=== PATIENT | female | born 1975 | race Caucasian/White ===

== ENCOUNTER 2016-09-25 00:10 | Emergency (ER) | payer OTHER, SELFPAY ==
[~2016-09-25] VITALS: Ht 175.3 cm; Wt 108.0 kg
[2016-09-25] MEDS ORDERED: KETOROLAC 30 MG/ML VIAL (J1885) IV ONE (00:45)
[2016-09-25 01:02] LABS: BASO % 0.5 % (0.0-1.0); EOS # 0.2 K/mm3 (0.0-0.50); EOS % 1.8 % (0.0-3.0); LARGE UNSTAINED CELL # 0.2 K/mm3 (0.0-0.4); LARGE UNSTAINED CELL % 1.7 % (0.0-4.0); LYMPH % 17.8 % (24.0-44.0); MEAN CORPUSCULAR HEMOGLOBIN 33.4 pg (27.0-33.0); MEAN CORPUSCULAR HGB CONC 33.3 g/dl (32.0-36.5); MEAN CORPUSCULAR VOLUME 100.3 fl (80.0-96.0); MONO # 0.5 K/mm3 (0.0-0.8); MONO % 4.2 % (0.0-5.0); NEUTROPHILS # 8.2 K/mm3 (1.8-7.7); PLATELET COUNT, AUTOMATED 264 k/mm3 (150-450); RED CELL DISTRIBUTION WIDTH 13.1 % (11.5-14.5)
[2016-09-25 01:08] LABS: INR 0.99
[2016-09-25 01:15] LABS: ANION GAP 8 MEQ/L (8-16); BLOOD UREA NITROGEN 7 MG/DL (7-18); CALCIUM LEVEL 9.2 MG/DL (8.5-10.1); CARBON DIOXIDE LEVEL 28 MEQ/L (21-32); CHLORIDE LEVEL 105 MEQ/L (98-107); CREATININE FOR GFR 0.68 MG/DL (0.55-1.02); GLOMERULAR FILTRATION RATE > 60.0 (>60); GLUCOSE, FASTING 94 MG/DL (70-105); POTASSIUM SERUM 3.1 MEQ/L (3.5-5.1); SODIUM LEVEL 141 MEQ/L (136-145)
[2016-09-25] MEDS ORDERED: ISOVUE-370 76% 100ML VIAL (Q9967) As Ordered ONE (02:40)
--- NOTE | 2016-09-25 03:20 | REPUSA ---
CLINICAL HISTORY: Dyspnea, exclude PE. TECHNIQUE: Multiple incremental axial, coronal and oblique images are obtained from the thoracic inle t to the upper abdomen. Intravenous contrast material was administered as per pulmonary embolism prot ocol. COMMENTS: Bilateral basilar atelectatic pulmonary changes on the left side. Multifocal air trapping in the lungs. There is excellent opacification of pulmonary arterial system without evidence for pulmonary embolism . Aorta is of normal caliber without evidence for dissection or aneurysm. There is no evidence of pleural or parenchymal mass. There are no pleural effusions. There is no evid ence of hilar or mediastinal lymphadenopathy. The heart and great vessels are within normal limits. Images of the upper abdomen demonstrate no evidence of adrenal mass. The bony structures are free of lytic or blastic lesions. Mild splenomegaly. IMPRESSION: No evidence for pulmonary embolism. Bilateral basilar atelectatic pulmonary changes more on the left side. Mild splenomegaly. Thank you for your kind referral of this patient.
[2016-09-25] MEDS ORDERED: dexameTHASONE 20 MG/5 ML VIAL (J1100) IV ONE (03:30)
[2016-09-25] MEDS ORDERED: PRED20TA PO (03:47)
[2016-09-25] MEDS ORDERED: KETO10TAB PO (03:48)
[2016-09-25 04:03] VITALS: BP 124/69
--- NOTE | 2016-09-25 10:09 | ECGEPIP ---
Stationary ECG Study [facility] - ED Test Date: 2016-09-25 Pat Name: MARJ COLON Department: Room: - Gender: F [employer]acking Unit Operator: alfie : 1975 Requested By: MORALES LAMAS Order Number: [id number] Reading MD: Karla Martinez Measurements Intervals [place] Rate: 99 P: 52 HI: 138 QRS: 3 QRSD: 97 T: 18 QT: 375 QTc: 482 Interpretive Statements SINUS RHYTHM SIMILAR 08/27/15 Electronically Signed On 09-25-2016 10:09:44 EDT by Karla Martinez
== END 2016-09-25 04:05 | disposition home or self-care (01) ==
LOC: EDBD 00:10 → M ED 01:05
DX: R07.81 Pleurodynia (principal); Z79.899 Other long term (current) drug therapy; Z97.5 Presence of (intrauterine) contraceptive device; Z88.5 Allergy status to narcotic agent; F17.210 Nicotine dependence, cigarettes, uncomplicated
CPT/HCPCS: 71275; 80048; 82550; 82553; 85025; 85610; 85730; 93005; 96374; 96375; 99283; J1100; J1885; Q9967

== ENCOUNTER 2019-05-23 14:07 | Emergency (ER) | payer BC, MEDICAID ==
[~2019-05-23] VITALS: Ht 175.3 cm; Wt 84.0 kg
[~2019-05-23 14:07] MED LIST: KETO10TAB PO; PRED20TA PO; ZANTREX; [UNRECOGNIZED DRUG - OTHER]
[2019-05-23] MEDS ORDERED: ASPI-1 PO (14:16)
[2019-05-23] MEDS ORDERED: MIRE1IUD IU (14:17)
[2019-05-23 15:48] LABS: BASO # 0.1 10^3/uL (0.0-0.2); BASO % 0.9 % (0.0-1.0); EOS # 0.3 10^3/uL (0.0-0.5); EOS % 3.6 % (0.0-3.0); HEMOGLOBIN 14.6 g/dl (12.0-15.5); LYMPH # 1.7 10^3/uL (1.5-5.0); LYMPH % 20.2 % (24.0-44.0); MEAN CORPUSCULAR HEMOGLOBIN 33.3 pg (27.0-33.0); MEAN CORPUSCULAR HGB CONC 33.2 g/dl (32.0-36.5); MEAN CORPUSCULAR VOLUME 100.2 fl (80.0-96.0); MONO # 0.8 10^3/uL (0.0-0.8); MONO % 9.2 % (0.0-5.0); NEUTROPHILS # 5.6 10^3/uL (1.5-8.5); NEUTROPHILS % 65.7 % (36.0-66.0); PLATELET COUNT, AUTOMATED 276 10^3/uL (150-450); RED BLOOD COUNT 4.39 10^6/uL (4.00-5.40); WHITE BLOOD COUNT 8.5 10^3/uL (4.0-10.0)
[2019-05-23 16:12] LABS: BLOOD UREA NITROGEN 12 MG/DL (7-18); CALCIUM LEVEL 8.6 MG/DL (8.5-10.1); CARBON DIOXIDE LEVEL 27 MEQ/L (21-32); CHLORIDE LEVEL 110 MEQ/L (98-107); CREATININE FOR GFR 0.83 MG/DL (0.55-1.30); GLOMERULAR FILTRATION RATE > 60.0 (>58); GLUCOSE, FASTING 109 MG/DL (70-100); POTASSIUM SERUM 4.7 MEQ/L (3.5-5.1); SODIUM LEVEL 144 MEQ/L (136-145)
--- NOTE | 2019-05-23 17:34 | REPVR ---
PROCEDURE INFORMATION: Exam: US Duplex Artery or Vein of the Abdominal and/or Reproductive Organs, Limited Exam date and time: 05/23/2019 4:50 PM Age: 44 years old Clinical indication: Pelvic pain; Additional info: Left lower pelvic pain TECHNIQUE: Imaging protocol: Real-time duplex ultrasound scan of the arterial or venous flow of the abdomen and/or reproductive organs, with color Doppler flow and spectral waveform analysis with image documentation. Exam focused on the region of clinical interest. Duplex images were received to evaluate vascular conditions. COMPARISON: US PELVIC NON-OB COMPLETE 02/25/2016 11:30 AM FINDINGS: Ovaries: The right ovary measures 3.3 x 1.8 x 1.6 cm. Normal color arterial and venous blood flow. Normal arterial spectral blood flow. The left ovary measures 3.2 x 1.7 x 2.0 cm. Normal color arterial and venous blood flow. Normal spectral arterial blood flow. There is a mildly complex cyst measuring 1.7 x 1.3 x 1.1 cm. IMPRESSION: No evidence of ovarian torsion. PROCEDURE INFORMATION: Exam: US Pelvis Complete, Transabdominal and US Pelvis, Transvaginal Exam date and time: 05/23/2019 4:50 PM Age: 44 years old Clinical indication: Pelvic pain; Additional info: Left lower pelvic pain TECHNIQUE: Imaging protocol: Real-time transabdominal and transvaginal pelvic ultrasound (complete) with image documentation. Transvaginal imaging was used for better evaluation of the endometrium and adnexa. COMPARISON: US PELVIC NON-OB COMPLETE 02/25/2016 11:30 AM FINDINGS: Uterus/cervix: The uterus measures 7.6 x 4.2 x 6.4 cm. The endometrium measures 0.7 cm. There are endometrial calcifications. Right adnexa: The right ovary measures 3.3 x 1.8 x 1.6 cm. Normal color arterial and venous blood flow. Normal arterial spectral blood flow. Left adnexa: The left ovary measures 3.2 x 1.7 x 2.0 cm. Normal color arterial and venous blood flow. Normal spectral arterial blood flow. There is a mildly complex cyst measuring 1.7 x 1.3 x 1.1 cm. Free fluid: None. Bladder: Normal. IMPRESSION: 1. 1.7 cm left ovarian complex cyst. 2. No evidence of ovarian torsion. Electronically signed by: Kendal Oconnor On 05/23/2019 17:33:46 PM
--- NOTE | 2019-05-23 17:39 | REPVR ---
PROCEDURE INFORMATION: Exam: CT Cervical Spine Without Contrast Exam date and time: 05/23/2019 4:29 PM Age: 44 years old Clinical indication: Neck pain; Additional info: Neck pain, numbness TECHNIQUE: Imaging protocol: Computed tomography images of the cervical spine without contrast. Radiation optimization: All CT scans at this facility use at least one of these dose optimization techniques: automated exposure control; mA and/or kV adjustment per patient size (includes targeted exams where dose is matched to clinical indication); or iterative reconstruction. COMPARISON: Thyroid, ST head+neck US 08/27/2015 11:17 AM FINDINGS: Vertebrae: Mild lower cervical levoconvex scoliosis. No acute fracture seen. Diffuse osseous demineralization. Mild posterior disc height loss with slight endplate osteophytic ridging at C3-C4. Elsewhere, minimal cervical prevertebral spondylosis. Facet arthropathy is severe on the left at C3-C4. C2-C3: No disc herniation. No spinal stenosis. No neural foraminal narrowing. C3-C4: Uncovertebral and in particular severe left facet arthropathy causing moderate left and mild right neural foraminal stenoses. C4-C5: Mild uncovertebral and facet arthropathy causing mild left neural foraminal stenosis. C5-C6: No disc herniation. No spinal stenosis. No neural foraminal narrowing. C6-C7: No disc herniation. No spinal stenosis. No neural foraminal narrowing. C7-T1: No disc herniation. No spinal stenosis. No neural foraminal narrowing. Soft tissues: Unremarkable. Lungs: Lung apices are normal. IMPRESSION: Moderate left neural foraminal stenosis at C3-C4. Electronically signed by: Kendal Oconnor On 05/23/2019 17:39:32 PM
[2019-05-23 17:59] LABS: CHLAMYDIA DNA AMPLIFICATION NEGATIVE (NEGATIVE); GC DNA AMPLIFICATION NEGATIVE (NEGATIVE)
[2019-05-23 18:17] VITALS: BP 118/68
[2019-05-23] MEDS ORDERED: FLAG500T PO (18:39)
[2019-05-23] MEDS ORDERED: metroNIDAZOLE (FLAGYL) 500 MG TAB PO ONE (18:45)
== END 2019-05-23 18:50 | disposition home or self-care (01) ==
LOC: M ED 14:07
DX: N83.292 Other ovarian cyst, left side (principal); N76.0 Acute vaginitis; M48.02 Spinal stenosis, cervical region; Z87.59 Personal history of other complications of pregnancy, childbirth and the puerperium; N80.9 Endometriosis, unspecified; D25.9 Leiomyoma of uterus, unspecified; Z87.42 Personal history of other diseases of the female genital tract; Z87.448 Personal history of other diseases of urinary system; F17.200 Nicotine dependence, unspecified, uncomplicated; Z79.82 Long term (current) use of aspirin; Z79.3 Long term (current) use of hormonal contraceptives; Z88.8 Allergy status to other drugs, medicaments and biological substances

== ENCOUNTER 2021-09-22 07:04 | Inpatient (IN) | payer OTHER, MEDICAID ==
[~2021-09-22] VITALS: Ht 175.3 cm; Wt 106.1 kg
[~2021-09-22 07:04] MED LIST changes: +ASPI-1 PO; +FLAG500T PO; +MIRE1IUD IU
[2021-09-22] MEDS ORDERED: MUPI2OI TOP (07:14)
[2021-09-22] MEDS ORDERED: AK-T0.3S (07:14)
[2021-09-22] MEDS ORDERED: PRED20TA PO (07:14)
[2021-09-22] MEDS ORDERED: DOXY-443 PO (07:14)
[2021-09-22] MEDS ORDERED: ACETAMINOPHEN 500 MG TAB PO ONE (07:20)
[2021-09-22] MEDS ORDERED: VANCOMYCIN HCL 2,000 MG in D5W 500 ML IV ONE (08:50)
[2021-09-22] MEDS ORDERED: ONDANSETRON 4MG/2ML VIAL IV ONE (08:50)
[2021-09-22] MEDS ORDERED: FLUORESCEIN OPHTH 1 MG STRIP XX ONE (08:55)
[2021-09-22] MEDS ORDERED: VANCOMYCIN HCL 1,000 MG, VIAL MATE ADAPTER 1 EACH in NS 250 ML IV ONE ×2 (09:10→11:00)
[2021-09-22 09:28] LABS: HEMATOCRIT 39.2 % (36.0-47.0); HEMOGLOBIN 13.4 g/dl (12.0-15.5); MEAN CORPUSCULAR HEMOGLOBIN 32.6 pg (27.0-33.0); MEAN CORPUSCULAR HGB CONC 34.2 g/dl (32.0-36.5); MEAN CORPUSCULAR VOLUME 95.4 fl (80.0-96.0); PLATELET COUNT, AUTOMATED 235 10^3/uL (150-450); RED BLOOD COUNT 4.11 10^6/uL (4.00-5.40); WHITE BLOOD COUNT 7.9 10^3/uL (4.0-10.0)
[2021-09-22 09:56] LABS: BLOOD UREA NITROGEN 15 MG/DL (7-18); C REACTIVE PROTEIN QUANTITATIV 0.71 MG/DL (0.00-0.30); CALCIUM LEVEL 8.3 MG/DL (8.5-10.1); CARBON DIOXIDE LEVEL 20 MEQ/L (21-32); CHLORIDE LEVEL 111 MEQ/L (98-107); CREATININE FOR GFR 0.49 MG/DL (0.55-1.30); GLOMERULAR FILTRATION RATE > 60.0 (>58); GLUCOSE, FASTING 118 MG/DL (70-100); POTASSIUM SERUM 4.6 MEQ/L (3.5-5.1); SODIUM LEVEL 137 MEQ/L (136-145)
[2021-09-22] MEDS: MORPHINE 2 MG/ML 1ML VIAL IV PRN ×2 (10:05→11:32)
[2021-09-22 10:07] LABS: ATYPICAL LYMPH 5 % (0-5); BASOPHILS 1 % (0-1); EOSINOPHILS 1 % (0-3); LYMPHOCYTES 12 % (16-44); MONOCYTES 6 % (0-5); NEUTROPHILS 72 % (28-66); PLASMA CELL 1 % (0-0)
[2021-09-22 10:08] LABS: PLATELET ESTIMATE NORMAL (NORMAL)
[2021-09-22] MEDS ORDERED: ISOVUE-370 76% 100ML VIAL As Ordered ONE (10:19)
[2021-09-22 10:38] LABS: RSV AMPLIFICATION NEGATIVE (NEGATIVE)
[2021-09-22] MEDS ORDERED: ACETAMINOPHEN TAB 650MG DOSE (2X325MG) PO PRN (12:00)
[2021-09-22] MEDS ORDERED: HOME MED LIST COMPLETE! XX SCH (12:10)
[2021-09-22 12:22] LABS: INR 0.97; PARTIAL THROMBOPLASTIN TIME 26.3 SECONDS (25.9-37.0); PROTHROMBIN TIME 13.3 SECONDS (12.7-14.5)
[2021-09-22 15:25] VITALS: BP 100/65
[2021-09-22] MEDS: oxyCODONE 5MG TAB PO PRN ×2 (16:59→21:52)
[2021-09-22] MEDS: valACYclovir HCL 500 MG TAB PO SCH ×2 (17:00→21:50)
[2021-09-22] MEDS: CEPHALEXIN 250MG CAPSULE PO SCH (17:00)
[2021-09-22 17:52] VITALS: BP 99/66
[2021-09-22] MEDS ORDERED: ENOXAPARIN 40MG/0.4ML SYRINGE (J1650 PER 10MG) SC SCH (21:00)
[2021-09-23] MEDS: CEPHALEXIN 250MG CAPSULE PO SCH ×3 (00:09→11:23)
[2021-09-23] MEDS: oxyCODONE 5MG TAB PO PRN ×2 (05:30→09:41)
[2021-09-23 06:00] VITALS: BP 101/53
[2021-09-23] MEDS ORDERED: CEPH250T PO (07:58)
[2021-09-23] MEDS ORDERED: VALA500T5 PO (07:58)
[2021-09-23] MEDS ORDERED: OXYC1TAB23 PO (08:00)
[2021-09-23] MEDS: valACYclovir HCL 500 MG TAB PO SCH (08:34)
== END 2021-09-23 11:53 | disposition home or self-care (01) | DRG 383 ==
LOC: M ED 07:04 → M ED INP 11:58 → ENRESERV 14:20 → M MSPAV 15:05
PROVIDERS: ADMIT Internal Medicine; ATTEND Internal Medicine
DX: L03.213 Periorbital cellulitis (principal); B02.9 Zoster without complications; J45.909 Unspecified asthma, uncomplicated; Z79.2 Long term (current) use of antibiotics; Z79.52 Long term (current) use of systemic steroids; Z79.899 Other long term (current) drug therapy; Z88.5 Allergy status to narcotic agent; N80.9 Endometriosis, unspecified; Z97.5 Presence of (intrauterine) contraceptive device; Z90.49 Acquired absence of other specified parts of digestive tract

== ENCOUNTER → 2022-08-13 | Outpatient (REF) | payer OTHER, MEDICAID ==
[~2022-08-13] MED LIST changes: +AK-T0.3S; +CEPH250T PO; +DOXY-443 PO; +MUPI2OI TOP; +OXYC1TAB23 PO; +VALA500T5 PO
== END ==
LOC: M LAB REF 09:38
PROVIDERS: ATTEND Nurse Practitioner Family
DX: J06.9 Acute upper respiratory infection, unspecified (principal); Z20.828 Contact with and (suspected) exposure to other viral communicable diseases

== ENCOUNTER 2023-01-20 17:32 | Emergency (ER) | payer MEDICAID, OTHER ==
[~2023-01-20] VITALS: Ht 175.3 cm; Wt 113.6 kg
[~2023-01-20 17:32] MED LIST changes: -AK-T0.3S; +TOBR0.3S30
[2023-01-20 18:25] LABS: BASO % 0.3 % (0.0-1.0); EOS # 0.1 10^3/uL (0.0-0.5); EOS % 1.2 % (0.0-3.0); HEMATOCRIT 40.9 % (36.0-47.0); HEMOGLOBIN 13.8 g/dl (12.0-15.5); LYMPH % 16.8 % (24.0-44.0); MEAN CORPUSCULAR HEMOGLOBIN 31.9 pg (27.0-33.0); MEAN CORPUSCULAR HGB CONC 33.7 g/dl (32.0-36.5); MEAN CORPUSCULAR VOLUME 94.7 fl (80.0-96.0); MONO # 0.7 10^3/uL (0.0-0.8); MONO % 5.9 % (2.0-8.0); NEUTROPHILS # 8.8 10^3/uL (1.5-8.5); NEUTROPHILS % 75.2 % (36.0-66.0); PLATELET COUNT, AUTOMATED 348 10^3/uL (150-450); RED BLOOD COUNT 4.32 10^6/uL (4.00-5.40); WHITE BLOOD COUNT 11.7 10^3/uL (4.0-10.0)
[2023-01-20 18:48] LABS: INR 1.03; PROTHROMBIN TIME 13.2 SECONDS (12.5-14.5)
[2023-01-20 18:55] LABS: LIPASE 33 U/L (12-53)
[2023-01-20 18:56] LABS: CPK CREATINE PHOSPHOKINASE 95 U/L (34-145)
[2023-01-20 18:57] LABS: ALBUMIN 3.7 G/DL (3.2-5.2); ALKALINE PHOSPHATASE 75 U/L (46-116); ALT/SGPT 15 U/L (7.0-40); AST/SGOT < 8 U/L (<34); BILIRUBIN,DIRECT 0.2 MG/DL (<0.4); BILIRUBIN,TOTAL 0.7 MG/DL (0.3-1.2); BLOOD UREA NITROGEN 13 MG/DL (9-23); CALCIUM LEVEL 8.8 MG/DL (8.5-10.1); CARBON DIOXIDE LEVEL 24 MMOL/L (20-31); CHLORIDE LEVEL 108 MMOL/L (98-107); CK-MB VALUE MASS < 1.0 NG/ML (<3.6); CREATININE FOR GFR 0.61 MG/DL (0.55-1.30); GLOMERULAR FILTRATION RATE > 60.0 (>58); GLUCOSE, FASTING 103 MG/DL (60-100); MB/CK RELATIVE INDEX 1.05 (< OR =4); POTASSIUM SERUM 3.9 MMOL/L (3.5-5.1); SODIUM LEVEL 139 MMOL/L (136-145)
[2023-01-20] MEDS ORDERED: MAALOX 30 ML SUSP *UDC PO ONE (19:00)
[2023-01-20] MEDS ORDERED: HYOSCYAMINE SULFATE 0.125 MG SUBL TABLET PO ONE (19:00)
[2023-01-20 19:06] LABS: RSV AMPLIFICATION NEGATIVE (NEGATIVE)
[2023-01-20] MEDS ORDERED: KETOROLAC 30 MG/ML 1ML VIAL IV ONE (19:50)
[2023-01-20 19:51] LABS: CK-MB VALUE MASS < 1.0 NG/ML (<3.6)
[2023-01-20 19:55] LABS: CPK CREATINE PHOSPHOKINASE 86 U/L (34-145); MB/CK RELATIVE INDEX 1.16 (< OR =4)
[2023-01-20] MEDS ORDERED: IBUP-1022 PO (20:05)
[2023-01-20 20:23] VITALS: BP 124/72; TEMP 98.2; O2SAT 96
== END 2023-01-20 20:39 | disposition home or self-care (01) ==
LOC: M ED 17:32 → EDBD 17:32 → M ED 20:39
DX: R09.1 Pleurisy (principal); J45.909 Unspecified asthma, uncomplicated; F17.200 Nicotine dependence, unspecified, uncomplicated; Z97.5 Presence of (intrauterine) contraceptive device; Z88.8 Allergy status to other drugs, medicaments and biological substances
CPT/HCPCS: 71045; 80048; 80076; 82550; 82553; 83690; 85025; 85610; 87631; 93005; 93041; 94760; 96374; 99285; J1885

== ENCOUNTER 2024-06-07 15:27 | Emergency (ER) | payer OTHER ==
[~2024-06-07] VITALS: Ht 175.3 cm; Wt 124.4 kg
[~2024-06-07 15:27] MED LIST changes: +DOXY-441 PO; -DOXY-443 PO; +IBUP-1022 PO
[2024-06-07] MEDS ORDERED: APAP325T4 PO (15:49)
[2024-06-07 18:16] LABS: BASO % 0.3 % (0.0-1.0); EOS # 0.4 10^3/uL (0.0-0.5); EOS % 3.9 % (0.0-3.0); HEMATOCRIT 44.3 % (36.0-47.0); HEMOGLOBIN 15.2 g/dl (12.0-15.5); LYMPH # 1.6 10^3/uL (1.5-5.0); LYMPH % 16.6 % (24.0-44.0); MEAN CORPUSCULAR HEMOGLOBIN 32.6 pg (27.0-33.0); MEAN CORPUSCULAR HGB CONC 34.3 g/dl (32.0-36.5); MEAN CORPUSCULAR VOLUME 95.1 fl (80.0-96.0); MONO % 10.1 % (2.0-8.0); NEUTROPHILS # 6.5 10^3/uL (1.5-8.5); NEUTROPHILS % 68.8 % (36.0-66.0); PLATELET COUNT, AUTOMATED 424 10^3/uL (150-450); RED BLOOD COUNT 4.66 10^6/uL (4.00-5.40); WHITE BLOOD COUNT 9.5 10^3/uL (4.0-10.0)
[2024-06-07 18:57] LABS: LIPASE 33 U/L (12-53)
[2024-06-07 18:59] LABS: ALBUMIN 3.7 G/DL (3.2-5.2); ALKALINE PHOSPHATASE 83 U/L (35-104); ALT/SGPT 73 U/L (7.0-40); AST/SGOT 40 U/L (<34); BILIRUBIN,DIRECT 0.1 MG/DL (<0.4); BILIRUBIN,TOTAL 0.4 MG/DL (0.3-1.2); BLOOD UREA NITROGEN 12 MG/DL (9-23); CALCIUM LEVEL 9.2 MG/DL (8.5-10.1); CARBON DIOXIDE LEVEL 22 MMOL/L (20-31); CHLORIDE LEVEL 107 MMOL/L (98-107); CREATININE FOR GFR 0.57 MG/DL (0.55-1.30); GLOMERULAR FILTRATION RATE > 60.0 (>58); GLUCOSE, FASTING 102 MG/DL (60-100); POTASSIUM SERUM 4.2 MMOL/L (3.5-5.1); SODIUM LEVEL 138 MMOL/L (136-145); TOTAL PROTEIN 7.9 G/DL (5.7-8.2)
[2024-06-07] MEDS: ONDANSETRON 4MG 2ML VIAL IV ONE (22:05)
[2024-06-07] MEDS: MORPHINE 2 MG/ML 1ML VIAL IV ONE (22:06)
[2024-06-08] MEDS ORDERED: ONDA-282 PO (01:00)
[2024-06-08 01:11] VITALS: BP 97/59; TEMP 96.8; O2SAT 97
== END 2024-06-08 01:21 | disposition home or self-care (01) ==
LOC: M ED 15:27
DX: K80.50 Calculus of bile duct without cholangitis or cholecystitis without obstruction (principal); R10.11 Right upper quadrant pain; I45.10 Unspecified right bundle-branch block; J45.909 Unspecified asthma, uncomplicated; F17.210 Nicotine dependence, cigarettes, uncomplicated; Z88.8 Allergy status to other drugs, medicaments and biological substances; Z79.1 Long term (current) use of non-steroidal anti-inflammatories (NSAID); Z79.899 Other long term (current) drug therapy
CPT/HCPCS: 76705; 80048; 80076; 83690; 85025; 87486; 87581; 87633; 87798; 93005; 96374; 96375; 99284; J2405